=== PATIENT | female | born 1945 | race Caucasian/White ===

== ENCOUNTER 2018-10-04 10:40 | Day surgery (SDC) | payer MEDICARE, OTHER ==
[~2018-10-04 10:40] MED LIST: Acetaminophen TAB* 325 MG PO PRN; Buffered Lidocaine 0.9% SYRIN* 5 ML/SYR SYRINGE INTRADERM ONE
[2018-10-04] MEDS ORDERED: Neomycin/Polymy/Dex OPHTH.OIN* 3.5 GM ONE ×2 (11:12→11:13)
[2018-10-04] MEDS ORDERED: Tropicamide 1% OPTH.SOL* BTL ONE ×2 (11:12→11:13)
[2018-10-04] MEDS ORDERED: Lidocaine 1%* 5 ML VIAL ONE ×2 (11:12→11:13)
[2018-10-04] MEDS ORDERED: Ketorolac 0.5% OPHTH (NF) 0.5 % 5 ML BTL ONE ×2 (11:12→11:13)
[2018-10-04] MEDS ORDERED: Cyclopentolate 1% OPTH.SOL* 2 ML BTL ONE ×2 (11:12→11:13)
[2018-10-04] MEDS ORDERED: Phenylephrine 2.5% OPTH.SOL* 2 ML BTL ONE ×2 (11:12→11:13)
[2018-10-04] MEDS ORDERED: Tetracaine 0.5% OPTH.SOL 4 ML* 1 DROP BTL ONE ×2 (11:12→11:13)
[2018-10-04] MEDS ORDERED: Midazolam* 1 MG/ML 2 ML VIAL (2 MG) ONE (12:13)
[2018-10-04] MEDS ORDERED: fentaNYL* 50 MCG/ML 2 ML VIAL (100 MCG VIAL) ONE (12:13)
[2018-10-04 13:04] VITALS: BP 105/66
--- NOTE | 2018-10-04 20:19 | OP ---
DATE OF OPERATION: 10/04/18 - [facility] DATE OF : 43 SURGEON: Chandana Vogt MD. SERVER SERVICE ASSISTANT: None. ANESTHESIA: Topical with intravenous sedation. PRE-OP DIAGNOSES: Cataract and astigmatism, left eye. POST-OP DIAGNOSES: Cataract and astigmatism, left eye. OPERATIVE PROCEDURE: Phacoemulsification and cataract extraction with posterior chamber intraocular toric lens implant, left eye. COMPLICATIONS: None. BLOOD LOSS: None. DESCRIPTION OF PROCEDURE: The patient was seen preoperatively in the holding area where she was placed in an upright position and a ashanti was made at the 6 o' clock location at the limbus of the left eye. The patient was subsequently brought to the operating room where she was given a small amount of intravenous sedation as well as a drop of tetracaine into the left eye. The patient was prepped and draped in the usual sterile fashion for ophthalmic surgery and attention was directed to the left eye where a speculum was placed. A paracentesis was created at the 5 o'clock position and 0.1 cc of 1% preservative -free lidocaine was injected into the anterior chamber followed by DisCoVisc. The eye was digitally stabilized while a 2.75-mm keratome was used to create a triplanar clear corneal incision at the 3 o'clock position. A continuous curvilinear capsulorrhexis was created using a cystotome and Utrata forceps. BSS on a cannula was used to hydrodissect the lens from the capsule. Phacoemulsification was performed in a cnufsj-lnr-[id number] technique to create 4 fragments, which were removed. Residual cortical material was removed with irrigation and aspiration. DisCoVisc was used to inflate the capsular bag. A Santana marker was used to ashanti the 85-degree axis. An [id number] 19 diopter lens was folded and inserted into the capsular bag. The lens was dialed to the appropriate axial alignment. The lens was stabilized through the paracentesis with a Sinskey hook, while irrigation and aspiration were performed to remove viscoelastic from the eye. BSS on a cannula was used to hydrate the corneal stroma and seal the wound. At the end of the case, the pupil was round. The lens was centered, stable, and axially aligned. The eye pressure appeared normal and the wound was water tight. The speculum was removed and topical Maxitrol ointment was placed on the surface of the eye. The eye was closed, patched, and shielded and the patient was sent to the recovery room in stable condition with postoperative instructions and followup appointment given. [id number]/[facility] #: [id number] ERA
== END 2018-10-04 13:19 | disposition home or self-care (01) ==
LOC: OREAST 10:40
PROVIDERS: ATTEND Ophthalmology
DX: Z01.810 Encounter for preprocedural cardiovascular examination (principal); H25.12 Age-related nuclear cataract, left eye; M26.601 Right temporomandibular joint disorder, unspecified; E03.9 Hypothyroidism, unspecified; Z87.891 Personal history of nicotine dependence; Z88.0 Allergy status to penicillin
CPT/HCPCS: A9270-GY; J2250; J3010; V2787

== ENCOUNTER 2018-10-11 09:45 | Day surgery (SDC) | payer MEDICARE, OTHER ==
[2018-10-11] MEDS ORDERED: fentaNYL* 50 MCG/ML 2 ML VIAL (100 MCG VIAL) ONE (10:56)
[2018-10-11] MEDS ORDERED: Midazolam* 1 MG/ML 2 ML VIAL (2 MG) ONE (10:57)
[2018-10-11 12:05] VITALS: BP 116/80
[2018-10-11] MEDS ORDERED: Ketorolac 0.5% OPHTH (NF) 0.5 % 5 ML BTL ONE (15:01)
[2018-10-11] MEDS ORDERED: Lidocaine 1%* 5 ML VIAL ONE (15:01)
[2018-10-11] MEDS ORDERED: Neomycin/Polymy/Dex OPHTH.OIN* 3.5 GM ONE (15:01)
[2018-10-11] MEDS ORDERED: Tropicamide 1% OPTH.SOL* BTL ONE (15:01)
[2018-10-11] MEDS ORDERED: Phenylephrine 2.5% OPTH.SOL* 2 ML BTL ONE (15:01)
[2018-10-11] MEDS ORDERED: Tetracaine 0.5% OPTH.SOL 4 ML* 1 DROP BTL ONE (15:01)
[2018-10-11] MEDS ORDERED: Cyclopentolate 1% OPTH.SOL* 2 ML BTL ONE (15:01)
--- NOTE | 2018-10-11 20:37 | OP ---
DATE OF OPERATION: 10/11/18 [facility] DATE OF : 43 SURGEON: Dr. Chandana Vogt. EXERCISER: None. ANESTHESIA: Topical with intravenous sedation. PRE-OP DIAGNOSIS: Cataract, right eye. POST-OP DIAGNOSIS: Cataract, right eye. OPERATIVE PROCEDURE: Phacoemulsification and cataract extraction with posterior chamber intraocular lens implant, right eye. COMPLICATIONS: None. BLOOD LOSS: None. DESCRIPTION OF PROCEDURE: The patient was brought to the operating room and received a small amount of intravenous sedation. A drop of Tetracaine was placed in right eye. The patient was prepped and draped in the usual sterile fashion for ophthalmic surgery and attention was directed to the right eye where a speculum was placed. A paracentesis was created at the 11 o'clock position and 0.1 cc of 1 percent preservative-free Lidocaine was injected into the anterior chamber followed by DisCoVisc. The eye was digitally stabilized while a 2.75 mm keratome was used to create a triplanar clear corneal incision at the 9 o'clock position. A continuous curvilinear capsulorrhexis was created with a cystotome and Utrata forceps. BSS on a cannula was used to hydrodissect the lens from the capsule. Phacoemulsification was performed in a divide-and- conquer technique to create four fragments which were removed. Residual cortical material was removed with irrigation and aspiration. DisCoVisc was used to inflate the capsular bag and an AU00T0 17.5 Diopter lens was folded and inserted into the capsular bag. DisCoVisc was removed using irrigation and aspiration. BSS on a cannula was used to hydrate the corneal stroma and seal the wound. At the end of the case the pupil was round and the lens was centered. The eye was of normal pressure and the wound was water tight. The speculum was removed and topical Maxitrol ointment was placed on the surface of the eye. The eye was closed, patched and shielded and the patient was sent to the recovery room in stable condition with post operative instructions and follow-up appointment given. [id number]/[facility] #: [id number] ERA
== END 2018-10-11 12:07 | disposition home or self-care (01) ==
LOC: OREAST 09:45
PROVIDERS: ATTEND Ophthalmology
DX: H25.11 Age-related nuclear cataract, right eye (principal); E03.9 Hypothyroidism, unspecified; Z87.891 Personal history of nicotine dependence; Z68.35 Body mass index [BMI] 35.0-35.9, adult
CPT/HCPCS: A9270-GY; J2250; J3010; V2632

== ENCOUNTER 2020-03-14 05:58 | Observation (INO) | payer MEDICARE, OTHER ==
[2020-03-14] MEDS ORDERED: Lactated Ringers 1000 ml BAG 1,000 ML IV SCH (06:00)
[2020-03-14] MEDS ORDERED: Clindamycin 900 MG/D5W BAG 900 MG/50 ML BAG IVPB ONE (06:13)
[2020-03-14] MEDS ORDERED: fentaNYL 250 mcg/5 ml 50 MCG/ML 5 ml VIAL (250 MCG) ONE (07:19)
[2020-03-14] MEDS ORDERED: Lidocaine 2% PF 5 ML VIAL ONE (07:19)
[2020-03-14] MEDS ORDERED: Midazolam 5 mg/5 ml VIAL 1 mg/ml 5 ml VIAL (5 mg) ONE (07:19)
[2020-03-14] MEDS ORDERED: fentaNYL 100 mcg/2 ml 50 MCG/ML VIAL ONE (07:22)
[2020-03-14] MEDS ORDERED: ROPIVACAINE 5 MG/ML 30 ML BTL (0.5%) ONE (07:37)
[2020-03-14] MEDS ORDERED: EPHEDrine (Pressors) 50 MG/ML VIAL ONE ×2 (08:10→09:25)
[2020-03-14] MEDS ORDERED: Phenylephrine 40 mcg/mL 10mL (400mcg) SYRINGE ONE ×3 (08:41→09:16)
[2020-03-14] MEDS ORDERED: Naloxone 0.4 mg VIAL 0.4 mg/ml 1 ml VIAL IV PRN (08:42)
[2020-03-14] MEDS ORDERED: HYDROmorphone 1 MG/1 ML SYRINGE IV PRN (08:42)
[2020-03-14] MEDS ORDERED: Prochlorperazine 5 mg/ml 2 ml VIAL (10 mg) IV PRN (08:42)
[2020-03-14] MEDS ORDERED: diPHENhydraMINE IV 50 MG/ML 1 ml VIAL (BENADRYL) IV PRN ×2 (08:42→08:52)
[2020-03-14] MEDS ORDERED: Magnesium Hydroxide LIQ 30 ML UDC PO PRN (08:52)
[2020-03-14] MEDS ORDERED: Ondansetron ODT 4 mg TAB 4 MG TAB PO PRN (08:52)
[2020-03-14] MEDS ORDERED: diPHENhydraMINE 25 mg TAB PO PRN (08:52)
[2020-03-14] MEDS ORDERED: oxyCODONE/Acetamin 5/325 mg TAB PO PRN ×2 (08:52)
[2020-03-14] MEDS ORDERED: Lactulose 30 ml UDC PO PRN (08:52)
[2020-03-14] MEDS ORDERED: Ondansetron 4 mg VIAL 2 MG/ML 2 ml VIAL ONE (09:52)
[2020-03-14] MEDS ORDERED: Ondansetron ODT 4 mg TAB 4 MG TAB ONE (10:33)
[2020-03-14] MEDS: Lactated Ringers 1000 ml BAG 1,000 ML IV SCH ×2 (11:27→21:57)
[2020-03-14] MEDS: Magnesium Hydroxide LIQ 30 ML UDC PO SCH ×2 (12:16→20:33)
[2020-03-14] MEDS: Vitamin THERAPEUTIC TAB PO SCH (12:16)
[2020-03-14] MEDS: Ondansetron 4 mg VIAL 2 MG/ML 2 ml VIAL IV PRN ×2 (14:46→23:14)
[2020-03-14] MEDS: Clindamycin 600 MG/D5W BAG 600 MG/50 ML BAG IV SCH (15:35)
[2020-03-15] MEDS ORDERED: Polyethylene Glycol 3350 17 GM PACKET PO PRN (00:01)
[2020-03-15] MEDS: Clindamycin 600 MG/D5W BAG 600 MG/50 ML BAG IV SCH ×2 (00:05→07:33)
[2020-03-15 07:05] LABS: Hematocrit 35 % (35-47); Hemoglobin 11.8 g/dL (12.0-16.0); Mean Platelet Volume 7.5 fL (7.4-10.4); Platelet Count 174 10^3/uL (150-450)
[2020-03-15 07:11] LABS: BUN/Creatinine Ratio 16.1 (8-20); Calcium 8.5 mg/dL (8.6-10.3); EGFR African American 71.1 (>60); EGFR Non-African American 58.8 (>60); Potassium 4.1 mmol/L (3.5-5.0)
[2020-03-15 07:53] VITALS: BP 100/60
[2020-03-15] MEDS: Magnesium Hydroxide LIQ 30 ML UDC PO SCH (08:13)
[2020-03-15] MEDS: Vitamin THERAPEUTIC TAB PO SCH (08:13)
== END 2020-03-15 12:43 | disposition home or self-care (01) ==
LOC: SSU 05:58 → OR 05:58
PROVIDERS: ADMIT Orthopaedic Surgery Adult Reconstructive Orthopaedic Surgery; ATTEND Orthopaedic Surgery Adult Reconstructive Orthopaedic Surgery